=== PATIENT | male | born 1950 | race Caucasian/White ===

== ENCOUNTER 2018-11-19 08:14 | Day surgery (SDC) | payer OTHER, BC ==
[2018-11-16 15:16] VITALS: BMI 31.7
[2018-11-19] MEDS ORDERED: DEXAMETHASONE SOD PHOSPHATE 4 MG/1 ML VIAL ONE (10:55)
[2018-11-19] MEDS ORDERED: PROPOFOL 20 ML ONE ×2 (10:58)
[2018-11-19] MEDS ORDERED: ePHEDrine SULFATE 50 MG/1 ML AMPULE ONE (11:34)
[2018-11-19] MEDS ORDERED: ONDANSETRON 4 MG/2 ML VIAL IVPUSH PRN (12:01)
[2018-11-19] MEDS ORDERED: oxyCODONE HCL 5 MG TABLET PO PRN (12:01)
--- NOTE | 2018-11-19 12:02 | OP ---
Operative Note - Note: Operative Date: 11/19/18 Pre-Operative Diagnosis: bph/bladder stones Operation: cystoscopy/laser lithotripsy of bladder stones Findings: multiple bladder stones each measuring greater than 4 cm Post-Operative Diagnosis: Same as Pre-op Surgeon: hSalom Tomas Anesthesia: General Specimens Removed: bladder stone fragments Estimated Blood Loss (mls): 5 Operative Report Dictated: Yes
[2018-11-19] MEDS ORDERED: LACTATED RINGERS SOLUTION 1,000 ML IV SCH (12:15)
[2018-11-19 12:26] VITALS: TEMP 97.8
[2018-11-19] MEDS ORDERED: oxyCODONE HCL 5 MG TABLET ONE (13:47)
[2018-11-19 14:27] VITALS: BP 141/57; PULSE 64
--- NOTE | 2018-11-19 22:42 | OP ---
DATE OF OPERATION: 11/19/2018 PREOPERATIVE DIAGNOSES: Benign prostatic hypertrophy and bladder stones. POSTOPERATIVE DIAGNOSES: Benign prostatic hypertrophy and bladder stones. PROCEDURE: Cystoscopy and laser lithotripsy of bladder stones. ATTENDING: Shalom Gan MD ANESTHESIA: General. DESCRIPTION OF OPERATION: Patient was brought in the operating room, placed in supine position on the operating room table. He was given general anesthesia and preoperative antibiotics. At this point, he was placed in the dorsal lithotomy position and prepped and draped in the usual sterile manner. Cystoscopy was performed. Multiple bladder stones, each measuring greater than 4 cm, were noted in the bladder. The patient had a large median lobe, and these stones were positioned underneath the median lobe of the prostate. With manipulation, the stones were brought out into the bladder base. Laser lithotripsy was performed. A holmium laser was utilized. The stones were very hard and did not fragment without significant amount of laser energy being utilized. The stones were eventually fragmented and evacuated with an MedPro evacuator. All specimens were sent to Pathology. There were minimal small millimeter fragments that were not clinically significant left in the bladder. These will be evacuated with the patient's normal voiding pattern. The patient was left with a Morgan catheter due to the significant manipulation during the procedure. The Morgan catheter will be left for 24 hours and removed in the morning. There were no complications noted. The disposition of the patient was to the recovery room. Neelima [id number]
--- NOTE | 2018-11-20 17:03 | PATH ---
Surgical Pathology Report Patient Name: KENNEDY MILLIGAN Med. Rec. #: [id number] /Age/Gender: 1950 (Age: 68) / M Account: [id number] Location: [facility] Taken: 11/19/2018 Received: 11/19/2018 Reported: 11/20/2018 Physicians: Shalom Tomas Specimen(s) Received BLADDER STONES Clinical History Bladder stones Final Diagnosis BLADDER STONES, LASER LITHOTRIPSY: BLADDER CALCULI. MACROSCOPIC DIAGNOSIS. Electronically Signed Dora Davila M.D. Gross Description Received fresh labeled "bladder stones," is a 3.0 x 1.5 x 0.5 cm aggregate of encinas-yellow, irregular to fragmented calculi. The specimen is sent for chemical analysis. /11/19/201811/19/2018
[2018-11-22 17:12] LABS: URIC ACID 100 % (.)
== END 2018-11-19 13:00 | disposition home or self-care (01) ==
LOC: JASU-SURG 08:14
PROVIDERS: ATTEND Urology
PROC: 0TCB8ZZ Extirpation of Matter from Bladder, Via Natural or Artificial Opening Endoscopic (ICD-10-PCS; principal; 2018-11-19 10:00)
DX: N40.0 Benign prostatic hyperplasia without lower urinary tract symptoms (principal); N21.0 Calculus in bladder
CPT/HCPCS: 36415; 82360; 88300-TC; 94760

== ENCOUNTER 2020-12-21 04:44 | Day surgery (SDC) | payer OTHER, BC ==
[2020-12-17 17:31] VITALS: BMI 32.5
[2020-12-21] MEDS ORDERED: MIDAZOLAM HCL 2 MG/2 ML SINGLE DOSE VIAL ONE (09:30)
[2020-12-21] MEDS ORDERED: PROPOFOL 20 ML ONE (09:30)
[2020-12-21] MEDS ORDERED: KETOROLAC TROMETHAMINE 30 MG/1 ML VIAL ONE (09:36)
[2020-12-21 10:24] VITALS: TEMP 97.8
[2020-12-21] MEDS ORDERED: ONDANSETRON 4 MG/2 ML VIAL IVPUSH PRN (12:08)
[2020-12-21] MEDS ORDERED: oxyCODONE HCL 5 MG TABLET PO PRN (12:08)
[2020-12-21] MEDS ORDERED: ACETAMINOPHEN 325 MG TABLET (FP) PO PRN (12:08)
[2020-12-21] MEDS ORDERED: LACTATED RINGERS SOLUTION 1,000 ML IV SCH (12:15)
[2020-12-21 13:14] VITALS: BP 145/78; PULSE 76
== END 2020-12-21 11:30 | disposition home or self-care (01) ==
LOC: JASU-SURG 04:44
PROVIDERS: ATTEND Urology
PROC: 0TF4XZZ Fragmentation in Left Kidney Pelvis, External Approach (ICD-10-PCS; principal; 2020-12-21 09:00)
DX: N20.0 Calculus of kidney (principal)